=== PATIENT | female | born 1965 | race Caucasian/White ===

== ENCOUNTER → 2017-09-09 | Outpatient (CLI) | payer BC ==
[~2017-09-09] MED LIST: LISI-362; LOR5/325 PO; OMEP-218 PO; ONDA4TAB PO
--- NOTE | 2017-09-09 15:27 | RADIOLOGY IMAGING REPORT ---
FACILITY: [facility] - [place] PATIENT NAME: Elsa Burciaga : 1965 MR: [id number] V: [id number] EXAM DATE: ORDERING PHYSICIAN: TANA YOUSIF TECHNOLOGIST: Location: [facility] [place] Patient: Elsa Burciaga : 1965 Visit/Account:[id number] Date of Sevice: 09/09/2017 DEXA Scan Clinical history: Osteoporosis. Comparison: DEXA scan from 07/02/2014. LUMBAR SPINE: The bone mineral density (BMD) measured from L1-L4 correlates with a Z-score of -1.7 and a T-score of -2.4 which is osteopenia as defined by the World Health Organization. The corresponding risk of fra cture in the lumbar spine is 4-6 times increased compared with a young adult reference population. T his value has decrease by 1.9 % since the prior study. More than 5% change is considered significant . HIP: Bone mineral density (BMD) measured in the LEFT total hip region correlates with a Z-score -1.1 and a T-score of -1.7 which is osteopenia as defined by the World Health Organization. The corresponding risk of fracture in the hip is 3-4 times increased compared to a young adult reference population. Th is value has decrease by 4.4 % since the prior study. More than 5% change is considered significant. T score left femoral neck -1.5 Bone mineral density (BMD) measured in the Femoral Neck region measures 0.823 g/cm?. IMPRESSION: 1. Lumbar spine: Osteopenia. There has been 1.9% decrease in the bone mineral density since the pre vious exam. 2. Left Total Hip: Osteopenia. There has been 4.4% decrease in the bone mineral density since the p revious exam. 3. Femoral Neck: Bone Mineral Density is 0.823 g/cm? The next DEXA scan of this patient should include the following sites: L1-L4 and the left hip. FRAX? WHO Fracture Risk Assessment Tool link: <http://www.shef.ac.uk/FRAX/tool.jsp?locationValue=9> PLEASE NOTE: 1) The World Health Organization defines low BMD as follows: T-score Normal > -1 Osteopenia < -1 and > -2.5 Osteoporosis < -2.5 without fractures Established osteoporosis < -2.5 with fractures 2) In general, you may wish to consider: Diagnosis Treatment Follow-up DEXA Normal BMD Prevention 2-3 years Osteopenia Prevention/therapy 1-2 years Osteoporosis Therapy Yearly 3) Fracture risk estimated from the T-score is more accurate for vertebral fractures (often spontane ous) than for hip fractures. Report Dictated By: Sheela Romo MD at 09/09/2017 3:20 PM Report E-Signed By: Sheela Romo MD at 09/09/2017 3:22 PM WSN:[email or web address]
--- NOTE | 2017-09-12 11:03 | RADIOLOGY IMAGING REPORT ---
FACILITY: [facility] PATIENT NAME: JUWAN PARK : [id number] MR: [id number] V: [id number] EXAM DATE: ORDERING PHYSICIAN: STEPHANIE SETH TECHNOLOGIST: Lani Benedict PROCEDURE:BILATERAL DIAGNOSTIC DIGITAL MAMMOGRAM WITH CAD ASSISTED INTERPRETATION & 3D TOMOSYNTHESIS COMPARISON:Prior mammograms 07/02/14, 01/19/13, 10/07/11 INDICATIONS:left lateral breast pain FINDINGS: Patient gives a history of two breast biopsies on the Left sense her 2013 mammogram. The patient also has prior outside mammograms sense 2013 therefore the final report cannot be produced until those mammograms are obtained. DIAGNOSTIC CATEGORY 0--INCOMPLETE: NEED ADDITIONAL IMAGING EVALUATION. RECOMMENDATIONS: COMPARISON TO PRIOR EXAMS REQUIRED. An addendum report will be sent after prior exams are obtained and reviewed. IMPRESSION: BIRADS 0: Incomplete Prior outside mammograms necessary to complete the report. Dictated by: Sheela Romo M.D. on 09/09/2017 at 15:37 Transcribed by: [email or web address] on 09/12/2017 at 8:43 Approved by: Sheela Romo M.D. on 09/12/2017 at 11:02 [facility]
== END ==
LOC: RAD 03:05
PROVIDERS: ATTEND Internal Medicine Rheumatology
DX: Z13.820 Encounter for screening for osteoporosis (principal); M85.89 Other specified disorders of bone density and structure, multiple sites; R92.8 Other abnormal and inconclusive findings on diagnostic imaging of breast
CPT/HCPCS: 77062; 77066; 77080

== ENCOUNTER → 2017-09-09 | Outpatient (CLI) | payer BC | LOC: MAMO 03:04 | PROVIDERS: ATTEND Family Medicine | DX: N64.4 Mastodynia (principal) ==